=== PATIENT | male | born 1950 | race Caucasian/White ===

== ENCOUNTER → 2018-11-21 11:08 | Outpatient (CLI) | payer MEDICARE, OTHER, SELFPAY ==
[2018-07-04 07:41] VITALS: BMI 27.6
--- NOTE | 2018-11-21 11:12 | US_ITS ---
STUDY: RENAL ULTRASOUND - COMPLETE REASON FOR EXAM: Male, 68 years old. Chronic kidney disease. TECHNIQUE: Ultrasound evaluation of the kidneys was performed with real-time and static hadley-scale imaging. COMPARISON: CT of the abdomen and pelvis dated August 31, 2015 FINDINGS: RIGHT KIDNEY: Normal location of the right kidney, which is normal in size. The right kidney measures 10.7 cm in length. There is a normal cortex of the right kidney. There is a nonobstructing 3.5 mm right renal calculus. There is no right renal mass or cyst. There is no right hydronephrosis. DISTAL RIGHT URETER: There is a visualized right ureteral jet. LEFT KIDNEY: Normal location of the left kidney, which is normal in size. The left kidney measures 10.2 cm in length. There is a normal cortex of the left kidney. There is a nonobstructing 3.8 mm calculus. There is no left renal mass or cyst. There is no left hydronephrosis. DISTAL LEFT URETER: There is a visualized left ureteral jet. BLADDER: The distended urinary bladder has a volume of 195 ml. There is a normal wall thickness of the distended urinary bladder. There is no demonstrated mass within the urinary bladder. There are no demonstrated bladder calculi. US/Kidney and Bladder IMPRESSION: Bilateral nonobstructing renal calculi measuring up to 3.8 cm on the left. Electronically Signed: Chantelle Arreola MD at 16:49 EDT Tel , Service support ,
== END ==
PROVIDERS: Family Provider Internal Medicine; PCP Internal Medicine; Referring Provider Internal Medicine Nephrology; Visit Provider Internal Medicine Nephrology
DX: N18.3 Chronic kidney disease, stage 3 (moderate) (principal)
CPT/HCPCS: 76770

== ENCOUNTER → 2019-09-01 09:18 | Outpatient (CLI) | payer MEDICARE, OTHER, SELFPAY ==
[2019-06-27 08:12] VITALS: BMI 27.3
[2019-09-01 12:09] LABS: Anion Gap 6 (5-15); BUN 16 mg/dL (7-18); BUN/Creat Ratio 10.9 RATIO (10-20); Calcium,Total 9.4 mg/dL (8.5-10.1); Chloride 106 mmol/L (98-107); Creatinine, Serum 1.47 mg/dL (0.70-1.30); EST Glomerular Filtration Rate 50 mL/min (>60); Est Glom Filt Rate - Afr Amer 61 mL/min (>60); Glucose 94 mg/dL (74-106); Potassium 4.5 mmol/L (3.5-5.1); Sodium Level 139 mmol/L (136-145)
[2019-09-01 12:17] LABS: Microalbumin,Random Urine 7.4 mg/L (NO RANGE EST.); Microalbumin:Creatinine Ratio 4.3 mg/g CRE (<30 mg/g CRE)
== END ==
PROVIDERS: PCP Internal Medicine; Visit Provider Internal Medicine Nephrology
DX: N18.3 Chronic kidney disease, stage 3 (moderate) (principal)
CPT/HCPCS: 80048; 82043; 82570

== ENCOUNTER 2020-03-13 05:51 | Day surgery (SDC) | payer MEDICARE, OTHER, SELFPAY ==
[2020-02-21 13:25] VITALS: BMI 26.0
--- NOTE | 2020-03-06 09:27 | EKG12_ITS ---
Test Reason : PRE OP Blood Pressure : / mmHG Vent. Rate : 090 BPM Atrial Rate : 090 BPM P-R Int : 164 ms QRS Dur : 084 ms QT Int : 350 ms P-R-T Axes : 032 -12 004 degrees QTc Int : 428 ms Normal sinus rhythm Low voltage QRS Borderline ECG Confirmed by AKSHAT MOLINA, MACHELLE ([id number]), development editor ESTUARDO ROSALES ([id number]) on 03/07/2020 2:24:26 PM Referred By: TABITHA Confirmed By:ALE ODEN MD
[2020-03-06 10:30] LABS: Hematocrit 44.1 % (40-54); Hemoglobin 14.9 g/dL (13.0-16.5); Mean Corp Hgb Conc 33.8 g/dL (32-36); Mean Corpuscular Volume 91.7 fL (80-94); Mean Platelet Vol. 9.7 fl (6.2-12.0); Platelet Count 145 K/mm3 (150-450); RBC Distribution Width CV 11.7 % (11.6-14.6); RBC Distribution Width SD 39.7 fl (35.1-43.9); Red Blood Count 4.81 M/mm3 (4.6-6.2); White Blood Count 5.1 K/mm3 (4.4-11.0)
[2020-03-06 10:57] LABS: Anion Gap 4 (5-15); BUN 18 mg/dL (7-18); BUN/Creat Ratio 11.3 RATIO (10-20); Calcium,Total 8.5 mg/dL (8.5-10.1); Chloride 107 mmol/L (98-107); Creatinine, Serum 1.59 mg/dL (0.70-1.30); EST Glomerular Filtration Rate 46 mL/min (>60); Est Glom Filt Rate - Afr Amer 56 mL/min (>60); Glucose 92 mg/dL (74-106); Potassium 3.8 mmol/L (3.5-5.1); Sodium Level 138 mmol/L (136-145)
[2020-03-13] VITALS (9 sets, daily range): BP systolic 107–139; BP diastolic 67–92; PULSE 71–97; RESP 12–18; TEMP 35.9–36.7; O2SAT 87–97; BMI 26.6
--- NOTE | 2020-03-13 06:00 | HP_ITS ---
Intake Vital Signs 02/21/20 Height 6 ft 02/21/20 Weight: 192 lb 4 oz 02/21/20 BP 139/86 H 02/21/20 Blood Pressure Location Rt brachial 02/21/20 Position Sitting 02/21/20 Respiration 20 H 02/21/20 Pulse 107 H 02/21/20 Pulse Source NIBP 02/21/20 Temp 98.0 F 02/21/20 Temp Source Temporal 02/21/20 Pulse Oximetry (%) 97 02/21/20 Oxygen Delivery Method room air Intake Visit Reasons: Hernia Chief Complaint: possible [facility] Microsoft [employer] Developer Required: No Is patient in pain?: No Allergies Barbiturates Allergy (Severe, Verified 02/21/20 13:26) Anaphylaxis shellfish derived Allergy (Severe, Verified 02/21/20 13:26) anaphylaxis Medications albuterol sulfate 90 mcg/actuation aerosol inhaler 2 puff INHALATION Q6H PRN #1 device 06/27/19 [Rx Confirmed 02/21/20] hydrochlorothiazide 25 mg tablet 25 mg PO DAILY tab 02/21/20 [History Confirmed 02/21/20] irbesartan 300 mg tablet 300 mg PO DAILY tab 02/21/20 [History Confirmed 02/21/20] omeprazole 20 mg capsule,delayed release 20 mg PO .qod cap 02/21/20 [History Confirmed 02/21/20] pravastatin 20 mg tablet 20 mg PO DAILY tab 02/21/20 [History Confirmed 02/21/20] sumatriptan succinate 50 mg tablet 50 mg PO ONCE PRN 02/21/20 [History Confirmed 02/21/20] PFSH Medical History ANAMARIA (obstructive sleep apnea) (Chronic) Anxiety and depression (Chronic) Ureterolithiasis (Chronic) Migraine without aura (Chronic) GERD (gastroesophageal reflux disease) (Chronic) Hyperlipemia (Chronic) HTN (hypertension) (Chronic) ANAMARIA treated with BiPAP (Acute) Surgical History History of cholecystectomy (Acute) History of colonoscopy (Acute ~2017) History of nasal septoplasty (Acute) Family History Father Colon cancer Cancer prostate Brother Hypertension Kidney disease Social History (Updated 02/27/20 @ 12:[address] Oliver Vargas MD) Smoking Status: Former smoker how long ago did patient quit smokin04/07 per day second hand exposure: Yes alcohol intake: current alcohol intake frequency: a few times a month substance use type: does not use HPI HPI Surgical H&P: Yes HPI: NITISH QUINTERO, is a 70 M who presents to the office today for Evaluation of a lump in his left groin. Patient states that he has had this lump for several months. Has been increasing in size. He notices intermittent discomfort when he is trying to play golf. He has had no change in his bowel or bladder habits. ROS General General: No weight change, appetite, fatigue, colon cancer, breast cancer or weakness Additional Details: CKD stage 3 HEENT HEENT: No difficulty swallowing, eye injury, eye surgery, swollen glands or hoarseness Endo Endocrine: No thyroid disease, diabetes mellitus, thyroid cancer, Hair loss, heat intolerance or cold intolerance Musc Musculoskeletal: Yes back problems; no arthritis, rheumatoid arthritis, gout or joint pain Cardio Cardiovascular: Yes high blood pressure; no murmur, pacemaker, heart disease, atrial fibrillation, heart attack, heart stent, palpitations, shortness of breat with exertion or chest pain Psych Psychiatric: No depression, anxiety or hearing voices Resp Respiratory: No shortness of breath, Yes sleep apnea, No cough, No COPD, No asthma, No emphysema, No wheezing Gastro Gastrointestinal: No abdominal pain, No nausea or vomiting, No diarrhea, No constipation, No blood in stool, Yes acid reflux, No hemorrhoids, No ulcers, No gallbladder problem, No black,tarry stools Romel Hematologic: No blood thinners, No blood disorders, No bleeding, No anemia, No blood clots Neuro Neurologic: No weakness Exam Const General: no acute distress, well developed, well hydrated Orientation: oriented to person, oriented to place, oriented to time [facility] Head: normocephalic, atraumatic Ears: external ears normal Mouth: moist mucous membranes Eyes Sclera: sclerae normal Pupils: normal by confrontation Neck Neck: no lymphadenopathy noted Neck mass: No Thyroid: thyroid normal, symmetrical Chest Chest palpation & inspection: normal inspection of the chest Resp Effort & Inspection: normal respiratory effort Auscultation: clear to auscultation bilaterally Percussion: percussion normal Cardio Rate: regular rate Rhythm: regular rhythm Heart Sounds: no murmurs GI Palpation: soft, no hepatosplenomegaly, no masses, tender Rectal Exam: other Other: Medium size left inguinal hernias palpated. It easily reduces. Rectal exam deferred. Extrem General: normal to inspection, no clubbing, cyanosis or edema Assessment & Plan 1. Hernia K46.9 2. Left inguinal hernia K40.90 Plan My plan is to perform a Robotic assisted laparoscopic left inguinal hernia repair with mesh. The planned surgical procedure was discussed extensively with the patient. The risks, benefits, anticipated outcomes and possible complication were mentioned. The patient understands that all hernia repair surgery has a chance of recurrence and/or chronic post-operative pain. My staff has also explained the procedure in understandable terms and the patient was given the option to take printed material concerning the planned procedure. The patient had the opportunity to ask questions concerning the planned procedure. The patient freely consents to the planned procedure. Coding Level of Care Code Off vis,new,level 3 Diagnoses Hernia K46.9 Left inguinal hernia K40.90 COVID (Procedure Consent) Procedure Criteria Procedure Criteria: Yes Elective The surgeon/proceduralist and patient have discussed in detail the risk of exposure to and/or potential harm posed by the COVID-19 virus with having a surgery/procedure at this time versus the risk of? delaying the surgery/procedure. It is not possible to know either the risk of delaying the surgery or procedure or chance of getting an infection with perfect accuracy, but a joint decision was made between the patient and the surgeon/proceduralist ?to proceed at this time with the scheduled surgery/procedure as indicated on the consent form. I have re-examined the patient. There are no clinical changes since date of exam.
[2020-03-13] MEDS: Lactated Ringers 1,000 ML 100 ML IV (06:35)
[2020-03-13] MEDS: Cefazolin 2 GM in 0.9% Normal Saline 100 ML IV (07:22)
--- NOTE | 2020-03-13 07:38 | PCM.DC.HER ---
Discharge Diet: Light diet - advance as tolerated Discharge Activity: Return to Normal Activity, May Drive - when you are no longer taking narcotic pain medications., May Shower - with the bandage in place 1-2 days after surgery. Lifting Restrictions: 20 pounds for 8 weeks. Additional Activity Instructions:: Climbing stairs is fine, walking is encouraged. Sitting in bed may be uncomfortable. Sitting up using your lateral muscles (sitting up sideways) is usually more comfortable. Do not drive, work heavy equipment of sign legal documents for 24 hours. If your hernia repair was an ingunial repair, you may have scrotal swelling, an ice pack and/or athletic support can provide more comfort. Pain medications may cause nausea, you should typically eat light foods as you take your pain medications. Pain medications may also cause constipation. If you have difficulty with this, discuss with your doctor. Call your doctor if your incision/area has: Continuous Slow Oozing, Sudden Increased Bleeding, Increased Pain/ Swelling, Increased Redness, Foul Smelling Discharge Call your doctor if you observe: Fever of 101 or Higher Suture Line Care: Avoid Pulling/Pushing, Avoid Pinching/Bending Additional Dressing/Incision Instructions:: Leave the operative bandage on for 2-3 days. When you remove the bandage, leave the steri-strips on place until your follow up appointment or they fall off. Allergies/Adverse Reactions: Allergies Barbiturates Allergy (Severe, Verified 03/13/20 06:19) Anaphylaxis shellfish derived Allergy (Severe, Verified 03/13/20 06:19) anaphylaxis amoxicillin [From Augmentin] Adverse Reaction (Verified 03/13/20 06:19) Vomiting clavulanic acid [From Augmentin] Adverse Reaction (Verified 03/13/20 06:19) Vomiting Medications to take at Discharge albuterol sulfate 90 mcg/actuation aerosol inhaler 2 puff INHALATION Q6H PRN #1 device 06/27/19 hydrochlorothiazide 25 mg tablet 25 mg PO DAILY tab 02/21/20 irbesartan 300 mg tablet 300 mg PO DAILY tab 02/21/20 omeprazole 20 mg capsule,delayed release 20 mg PO .qod cap 02/21/20 pravastatin 20 mg tablet 20 mg PO DAILY tab 02/21/20 sumatriptan succinate 50 mg tablet 50 mg PO ONCE PRN 02/21/20 Oxycodone HCl/Acetaminophen [Percocet 5/325] 1 - 2 tablet PO Q4H PRN PRN 6 Days #30 tablet 03/13/20 The following prescriptions were given: Oxycodone HCl/Acetaminophen [Percocet 5/325] 1 - 2 tablet PO Q4H PRN PRN 6 Days #30 tablet PRN Reason: Pain Transmission Status: Sent to [facility] Primary Care Physician: Geovanny Avila MD [Primary Care Provider] - Test Results: Test results from this visit will be discussed in further detail at your follow-up appointment, if applicable. Please Follow Up With: Oliver Vargas MD - [phone] When: Plan to have a follow up appointment in 7 days. Call to schedule.
--- NOTE | 2020-03-13 07:39 | PCM.OPRPT ---
Problem List (1) Left inguinal hernia Status: Acute Report of Operation Date of Procedure: 03/13/20 Pre-Operative Diagnosis: Left inguinal hernia Post-Operative Diagnosis: Same Surgery/Procedure Performed:: Robotically assisted laparoscopic left inguinal hernia repair with mesh Type of Anesthesia:: General Anesthesiologist: Osorio Layton Estimated Blood Loss (mL): < 25 cc Description of Procedure: Patient was brought into the operating room. Placed in the supine position. Under excellent general trach intubation abdomen was sterilely prepped and draped in usual fashion. Bed was placed in the slightly headdown position. Approximately 3 to 4 cm above the umbilicus and local was injected incision was carried down to the fascia fascia was grasped with [place] varies needle was placed inside the abdomen the abdomen was insufflated to 15 torr. A #8 trocar was placed without difficulty. It was flank by 2 #8 trochars both placed under direct visualization. The robot was then brought in properly docked all the ports were burped. A prograsp was placed in the #2 port scissors were placed in the #1 port. I then broke scrub and went to the robot. I scored the peritoneum dissected down to Matt's ligament and the pubic tubercle dissected this area completely free then dissected laterally bringing back an indirect inguinal hernia dissecting it free from the cord and vessel structures. I then dissected further laterally. I had excellent hemostasis. I was able to place the prograsp mesh into the wound it laid completely flat covering both direct indirect and femoral hernia. I had no tension on bringing the peritoneum back up I sutured the peritoneum with a 3 OV lock. The peritoneum covered the mesh completely and there was no mesenteric rents identified. I had excellent hemostasis. Patient had a significant amount of adhesions on the right side and I did not want to start dissecting down on these for fear of getting into the small intestine no obvious hernia was felt on my exam and therefore I did nothing to the right inguinal area. Of note if he were ever to develop a right inguinal hernia taking these adhesions down is going to be very difficult and it might be better served if he had just a standard open right inguinal hernia if that were ever to matriculate. Trochars were removed under direct visualization good in the stasis was noted. Ilioinguinal nerve block was performed. Skin incisions were closed with 4-0 PDS. Sterile dressings were applied patient tolerated the procedure well - Admit VTE Documentation VTE Present on Admission: No VTE Mechan Device Prophylaxis: SCD's VTE Pharm Prophylaxis ordered?: No Reason prophylaxis not ordered:: Treatment Not Indicated [id number]: [id number] Lap ing hernia repair init
[2020-03-13] MEDS: 0.9% Normal Saline 1,000 ML 100 ML IV (08:30)
[2020-03-13] MEDS: Bupivacaine Mpf 0.5% 30 ML VIAL (08:35)
[2020-03-13] MEDS: Acetaminophen 325 MG Tablet PO (12:01)
[2020-03-13] MEDS: oxyCODONE 5 MG Tablet PO (12:01)
== END 2020-03-13 12:27 | disposition home or self-care (01) ==
LOC: SDC 05:52 → AC 05:52
PROVIDERS: Anesthesiology; PCP Internal Medicine; Referring Provider Surgery; Visit Provider Surgery
PROC: 0YQ64ZZ Repair Left Inguinal Region, Percutaneous Endoscopic Approach (ICD-10-PCS; CPT 49650; principal; 2020-03-13 07:10)
DX: K40.90 Unilateral inguinal hernia, without obstruction or gangrene, not specified as recurrent (principal); G47.33 Obstructive sleep apnea (adult) (pediatric); F32.9 Major depressive disorder, single episode, unspecified; F41.9 Anxiety disorder, unspecified; K21.9 Gastro-esophageal reflux disease without esophagitis; E78.5 Hyperlipidemia, unspecified; Z90.49 Acquired absence of other specified parts of digestive tract; Z87.891 Personal history of nicotine dependence; N18.30 Chronic kidney disease, stage 3 unspecified; I12.9 Hypertensive chronic kidney disease with stage 1 through stage 4 chronic kidney disease, or unspecified chronic kidney disease
CPT/HCPCS: 00840; 49650; 36415; 80048; 85027; 87426; 93005; C9803; J7120; J2405

== ENCOUNTER → 2020-04-01 13:12 | Outpatient (CLI) | payer MEDICARE, OTHER, SELFPAY ==
[2020-03-13 06:20] VITALS: BMI 26.6
[2020-04-01 13:46] LABS: Absolute Lymphocyte Count 1.34 X10^3/uL (0.83-4.51); Absolute Neutrophil Count 3.9 X10^3/uL (2.0-7.7); Basophil# 0.05 X10^3/uL; Basophil% 0.8 % (0-1); Eosinophil# 0.14 X10^3/uL; Eosinophils% 2.3 % (0-5); Hematocrit 42.8 % (40-54); Hemoglobin 14.7 g/dL (13.0-16.5); Lymphocyte # 1.34 X10^3/ul (4.0); Lymphocyte % 22.4 % (19-41); Mean Corp Hgb Conc 34.3 g/dL (32-36); Mean Corpuscular Hgb 31.4 pg (27.0-32.0); Mean Corpuscular Volume 91.5 fL (80-94); Mean Platelet Vol. 9.3 fl (6.2-12.0); Monocyte# 0.55 X10^3/uL; Monocyte% 9.2 % (0-10); NRBC Flagged by Analyzer 0 % (0-5); Neutrophil # 3.89 X10^3/uL (2.7-7.7); Platelet Count 159 K/mm3 (150-450); RBC Distribution Width CV 12.5 % (11.6-14.6); RBC Distribution Width SD 41.4 fl (35.1-43.9); Red Blood Count 4.68 M/mm3 (4.6-6.2)
[2020-04-01 13:59] LABS: Protein, Urine (Random) 10.8 mg/dL (<11.9); Protein:Creat Ratio 94 mg/g CRE (0-200)
[2020-04-01 14:09] LABS: Albumin, Serum 3.6 g/dL (3.2-5.0); BUN 14 mg/dL (7-18); BUN/Creat Ratio 9.6 RATIO (10-20); Calcium,Total 8.7 mg/dL (8.5-10.1); Chloride 105 mmol/L (98-107); Creatinine, Serum 1.46 mg/dL (0.70-1.30); EST Glomerular Filtration Rate 51 mL/min (>60); Est Glom Filt Rate - Afr Amer 61 mL/min (>60); Glucose 125 mg/dL (74-106); PTHIN 65.3 pg/mL (18.4-80.1); Phosphorus 3.2 mg/dL (2.5-4.9); Potassium 3.9 mmol/L (3.5-5.1); Sodium Level 140 mmol/L (136-145)
[2020-04-01 14:12] LABS: Vitamin D,25 Hydroxy 20.6 ng/mL
== END ==
PROVIDERS: PCP Internal Medicine; Referring Provider Internal Medicine Nephrology; Visit Provider Internal Medicine Nephrology
DX: N18.30 Chronic kidney disease, stage 3 unspecified (principal)
CPT/HCPCS: 36415; 80069; 82306; 82570; 83970; 84156; 85025

== ENCOUNTER → 2022-05-03 | Outpatient (CLI) | payer MEDICARE, OTHER, SELFPAY ==
--- NOTE | 2022-05-03 17:13 | NEURO ---
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 Symptoms have gradually worsened over several years. Findings: Nerve conduction studies were performed in the right and left upper extremities. The right median motor study recording the abductor pollicis brevis showed a normal amplitude, normal distal latency and normal conduction velocity. The right ulnar motor study recording the abductor digiti minimi showed a normal amplitude, normal distal latency and normal conduction velocity. No conduction block or focal slowing was present across the elbow. The right median sensory response recording digit two showed a borderline amplitude, borderline latency and slowed conduction velocity. The right ulnar sensory response recording digit five showed a normal amplitude, borderline latency and mildly slowed conduction velocity. The right radial sensory response recording over the extensor snuff box showed a borderline amplitude, normal latency and normal conduction velocity. Right median-ulnar lumbrical / interosseous motor latencies showed a prolonged median latency compared to the ulnar. Needle EMG of the right upper extremity muscles was performed. Sparse denervation was seen in the abductor pollicis brevis muscle alone. Motor units in the right abductor pollicis brevis were large amplitude, long duration with reduced recruitment. All other motor unit morphology, activation and recruitment patterns were normal. Impression: This is an abnormal study. There is electrophysiologic evidence of a mild median neuropathy across the wrist in the right upper extremity. The pathophysiology is demyelinating with some evidence of secondary axonal injury. These findings are compatible with the clinical diagnosis of carpal tunnel syndrome. Please note: the slightly prolonged and slowed sensory latencies are of unclear significance, but may represent a more generalized underlying peripheral polyneuropathy. This possibility was not explored further as it was not the indication for the current study. If needed, a dedicated study of the lower extremities can be ordered separately. Tyrone Bragg D.O. Multi Select Codes Neurology Neurology Interp Codes: 68281-69 Musc test done w/n test comp (interp) and 73081-10 Nrv cndj test 7-8 studies (interp)
== END | disposition home or self-care (01) ==
LOC: PSN 15:53
PROVIDERS: PCP Internal Medicine; Visit Provider Specialist
DX: R20.2 Paresthesia of skin (principal)
CPT/HCPCS: 95886; 95910

== ENCOUNTER → 2024-03-13 | Outpatient (CLI) | payer MEDICARE, OTHER, SELFPAY | END | disposition home or self-care (01) | PROVIDERS: PCP Internal Medicine; Referring Provider Nurse Practitioner Acute Care; Visit Provider Nurse Practitioner Acute Care | DX: G47.33 Obstructive sleep apnea (adult) (pediatric) (principal) | CPT/HCPCS: 98960; G0463 ==

== ENCOUNTER → 2024-04-09 | Outpatient (CLI) | payer MEDICARE, OTHER, SELFPAY | END | disposition home or self-care (01) | LOC: LABSPEC 15:31 | PROVIDERS: PCP Internal Medicine; Referring Provider Otolaryngology Otolaryngology/Facial Plastic Surgery; Visit Provider Otolaryngology Otolaryngology/Facial Plastic Surgery | DX: J01.90 Acute sinusitis, unspecified (principal) | CPT/HCPCS: 87070; 87077; 87186; 87205 ==

== ENCOUNTER → 2024-05-15 | Outpatient (CLI) | payer MEDICARE, OTHER, SELFPAY | END | disposition home or self-care (01) | LOC: SL 11:32 | PROVIDERS: PCP Internal Medicine; Visit Provider Nurse Practitioner Family | DX: Z46.89 Encounter for fitting and adjustment of other specified devices (principal) ==

== ENCOUNTER → 2024-06-20 | Outpatient (CLI) | payer MEDICARE, OTHER, SELFPAY ==
[2024-06-20 12:27] LABS: Erythrocyte Sedimentation Rate 1 mm/hr (0-20)
[2024-06-20 12:29] LABS: Basophil# 0.05 X10^3/uL; Basophil% 0.9 % (0-1); Eosinophil# 0.09 X10^3/uL; Eosinophils% 1.6 % (0-5); Hematocrit 44.8 % (40-54); Hemoglobin 15.9 g/dL (13.0-16.5); Lymphocyte % 19.2 % (19-41); Mean Corp Hgb Conc 35.5 g/dL (32-36); Mean Corpuscular Hgb 32.3 pg (27.0-32.0); Mean Corpuscular Volume 90.9 fL (80-94); Mean Platelet Vol. 9.3 fl (6.2-12.0); Monocyte# 0.52 X10^3/uL; Monocyte% 9.1 % (0-10); NRBC Flagged by Analyzer 0 % (0-5); Neutrophil # 3.96 X10^3/uL (2.7-7.7); Neutrophil % 68.9 % (47-70); Platelet Count 197 K/mm3 (150-450); RBC Distribution Width CV 11.9 % (11.6-14.6); RBC Distribution Width SD 39.5 fl (35.1-43.9); Red Blood Count 4.93 M/mm3 (4.6-6.2); White Blood Count 5.7 K/mm3 (4.4-11.0)
[2024-06-20 13:06] LABS: ALB/GLOB Ratio 1.5 RATIO (0.9-2.4); AST(SGOT) 28 U/L (<=37); Alanine Aminotransfer ALT/SGPT 30 U/L (<=46); Albumin, Serum 4.3 g/dL (3.4-4.8); Alkaline Phosphatase 76 U/L (40-129); Anion Gap 11 (5-15); BUN 15 mg/dL (4-19); BUN/Creat Ratio 10.2 RATIO (10-20); Calcium,Total 9.5 mg/dL (7.6-11.0); Carbon Dioxide 24.6 mmol/L (21.0-32.0); Chloride 104 mmol/L (98-108); Creatinine, Serum 1.47 mg/dL (0.70-1.20); EST Glomerular Filtration Rate 49 (>60); Globulin 2.9 g/dL (2.2-4.2); Glucose 97 mg/dL (70-99); Potassium 4.2 mmol/L (3.3-5.1); Protein, Total 7.2 g/dL (5.9-8.4); Sodium Level 140 mmol/L (133-145); Total Bilirubin 0.58 mg/dL (0.00-1.30); Vitamin B12 770 pg/mL (180-914)
[2024-06-20 13:09] LABS: CRP < 3.00 mg/L (0.0-3.0)
[2024-06-21 11:08] LABS: Anti-Centromere B Ab <0.2 AI (0.0-0.9); Anti-Chromatin <0.2 AI (0.0-0.9); Anti-Jo <0.2 AI (0.0-0.9); Anti-Scleroderma-70 AB <0.2 AI (0.0-0.9); Anti-dsDNA Ab 2 IU/mL (0-9); RNP Ab <0.2 AI (0.0-0.9); SJOGREN'S Anti-SS-A test < 0.2 AI (0.0-0.9); SJOGREN'S Anti-SS-B test 2.2 AI (0.0-0.9); Smith Ab <0.2 AI (0.0-0.9)
[2024-06-22 16:09] LABS: Albumin 3.7 g/dL (2.9-4.4); Alpha-1-Globulins 0.3 g/dL (0.0-0.4); Alpha-2-Globulins 0.8 g/dL (0.4-1.0); Immunoglobulin A 353 mg/dL (61-437); Immunoglobulin G 927 mg/dL (603-1613); Immunoglobulin M 75 mg/dL (15-143); PROEL- TOTAL PROTEIN 6.8 g/dL (6.0-8.5)
== END | disposition home or self-care (01) ==
LOC: MTLAB 09:59
PROVIDERS: PCP Internal Medicine; Referring Provider Psychiatry & Neurology Neurology; Visit Provider Psychiatry & Neurology Neurology
DX: G62.9 Polyneuropathy, unspecified (principal)
CPT/HCPCS: 36415; 80053; 82607; 82784; 84165; 85025; 85652; 86140; 86225; 86235; 86334

== ENCOUNTER → 2024-07-04 | Outpatient (CLI) | payer MEDICARE, OTHER, SELFPAY ==
--- NOTE | 2024-07-04 13:20 | NEURO_ITS ---
NCS and/or EMG Patient Report Ordering Doctor: Eileen Zhao DATE OF SERVICE: 07/04/24 William presents with complaints of pain in the neck as well as numbness and tingling, primarily in the right foot. Electrodiagnostic findings: Right median motor nerve demonstrates prolonged latency with reduced amplitude and normal conduction velocity. Right ulnar motor response is within normal limits. Right peroneal motor nerve demonstrates normal distal latency, amplitude and conduction velocity. Right tibial motor ne rve demonstrates normal distal latency, amplitude and conduction velocity. Prolonged right median sensory latency at the wrist. Prolonged right sural latency is noted. Normal F-waves. Prolonged H-reflex bilaterally. Needle EMG testing was performed the right upper and right lower limb. All muscles tested showed no evidence of denervation with normal motor unit action potentials. Electrodiagnostic impression: This an abnormal study in the right upper limb. 1. Electrodiagnostic findings suggestive of right-sided median mononeuropathy. This consistent with a moderate right carpal tunnel syndrome. 2. No significant electrodiagnostic evidence is noted for peripheral polyneuropathy. 3. No electrodiagnostic evidence is noted for lumbar or cervical radiculopathy Multi Select Codes Neurology Neurology Interp Codes: 33529-43 Musc test done w/n test comp (interp) (2) and 49443-26 Nrv cndj test 11-12 studies (interp)
== END | disposition home or self-care (01) ==
PROVIDERS: PCP Internal Medicine
DX: M54.2 Cervicalgia (principal); G57.93 Unspecified mononeuropathy of bilateral lower limbs; G62.9 Polyneuropathy, unspecified; G50.0 Trigeminal neuralgia
CPT/HCPCS: 95886; 95912

== ENCOUNTER → 2024-07-10 | Outpatient (CLI) | payer MEDICARE, OTHER, SELFPAY ==
--- NOTE | 2024-07-10 17:04 | MRI_ITS ---
PROCEDURE: BRAIN WITHOUT CONTRAST 07/10/2024 REASON FOR EXAM: FACIAL PAIN TECHNIQUE: Brain MRI without intravenous contrast with additional dedicated imaging of the IACs. COMPARISON: None FINDINGS: TECHNIQUE: Multiplanar, multi-sequence MRI of brain was performed without and with IV contrast. FINDINGS: BRAIN/PARENCHYMA: No evidence of acute infarction or acute intracranial hemorrhage. There are subcortical and periventricular white matter FLAIR hyperintensities, likely related to chronic microvascular ischemic disease. No abnormal post-contrast enhancement. EXTRA-AXIAL SPACES: No abnormal extra-axial fluid collections. Patent basal cisterns and foramen magnum. MIDLINE SHIFT: None. VENTRICLES: No hydrocephalus. SCALP SOFT TISSUES & CALVARIUM: Within the right masseter muscle, there is a 16 x 14 mm mixed signal intensity mass (series 5, image 4, series 6 image 4), with fluid fluid levels likely blood products. A small similar appearing lesion is also noted within the anterior aspect of the right parotid gland. This may represent soft tissue venous malformations. VISUALIZED SINUSES & MASTOIDS: No air-fluid levels in the paranasal sinuses. The mastoid air cells are clear. ARTERIAL FLOW VOIDS: Preserved major arterial flow voids indicating gross patency. MRI/Brain without Contrast IMPRESSION: No acute intracranial abnormality. 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 [facility]
--- NOTE | 2024-07-10 17:04 | MRI_ITS ---
PROCEDURE: SPINE CERVICAL (ROUTINE) 07/10/2024 REASON FOR EXAM: CERVICALGIA TECHNIQUE: Noncontrast cervical spine MRI. Coronal and Sagittal reconstruction series were provided. COMPARISON: None. FINDINGS: Vertebrae: Straightening of the cervical lordosis. Atlantoaxial interval is maintained. Vertebral body heights and disc spaces are within normal limits. Bone marrow signal is unremarkable. No acute fracture or traumatic malalignment. Alignment: Straightening of the cervical lordosis. Spinal Cord: Cervical spinal cord is of normal size and signal intensities. Structures at the foramen magnum are unremarkable. C2-3: No canal stenosis or neural foraminal narrowing. C3-4: Disc osteophyte complex, [id number]-right uncinate hypertrophy and facet degenerative changes with moderate canal stenosis. Severe left and moderate right neural foraminal narrowing. C4-5: Disc osteophyte complex, gbov-nyfwvlk-atic-right uncinate hypertrophy and facet degenerative changes with moderate canal stenosis. Djpm-scrmxpc-pqeh-right severe neural foraminal narrowing. C5-6: Disc osteophyte complex, uncinate hypertrophy, facet degenerative changes and ligamentum flavum hypertrophy with severe canal stenosis. Severe bilateral neural foraminal narrowing. C6-7: Disc osteophyte complex, uncinate hypertrophy and facet degenerative changes with mild canal stenosis. Severe right and moderate left neural foraminal narrowing. C7-T1: Dswk-[id number]-nagd-right uncinate hypertrophy. No significant canal stenosis or neural foraminal narrowing MRI/Spine Cervical (Routine) IMPRESSION: Multilevel degenerative changes of the cervical spine, with up to severe canal stenosis and neural foraminal narrowing most prominent at C5-C6. Reading Location: [facility]
== END | disposition home or self-care (01) ==
LOC: MRI 16:53
PROVIDERS: PCP Internal Medicine; Referring Provider Psychiatry & Neurology Neurology; Visit Provider Psychiatry & Neurology Neurology
DX: G50.0 Trigeminal neuralgia (principal); M54.2 Cervicalgia
CPT/HCPCS: 70551; 72141